=== PATIENT | female | born 1990 | race Caucasian/White ===

== ENCOUNTER 2017-08-13 03:28 | Emergency (ER) | payer OTHER ==
[2017-08-13] MEDS ORDERED: NORMAL SALINE 1000 ML 1,000 ML IV PRN (04:23)
[2017-08-13] MEDS ORDERED: METOCLOPRAMIDE HCL INJ/PF 10 MG/2 ML SDV IV ONE (04:23)
--- NOTE | 2017-08-13 04:28 | ER Document Report ---
ED GI/ - General Chief Complaint: Abdominal Pain Stated Complaint: ABDOMINAL PAIN Time Seen by Provider: 08/13/17 04:03 Mode of Arrival: Ambulatory Information source: Patient TRAVEL OUTSIDE OF THE [place] IN LAST 30 DAYS: No - HPI Patient complains to provider of: Other - Abdominal cramping with nausea and diarrhea Notes: 08/13/17 04:26 Patient is a 26-year-old female who presents with complaint of low abdominal cramping, nausea and diarrhea that started on Saturday. Patient reports that she is having diarrhea at least one time one hour. Patient denies any fever or vomiting but reports that she has taken 12 mg of Zofran at 8 PM with no relief of her nausea. Patient denies any urinary frequency or dysuria. Past medical history of POTS and bilateral bunionectomy. Patient does not take any medications. - Related Data Allergies/Adverse Reactions: phenytoin [From Dilantin] Allergy (Verified 08/13/17 03:57) zolmitriptan [From Zomig] Allergy (Verified 08/13/17 03:57) Past Medical History - General Information source: Patient - Social History Smoking Status: Never Smoker Chew tobacco use (# tins/day): No Frequency of alcohol use: None Drug Abuse: None Lives with: Family Family History: Reviewed & Not Pertinent Patient has suicidal ideation: No Patient has homicidal ideation: No - Medical History Medical History: Other - POTS - Past Medical History Cardiac Medical History: Reports: None Pulmonary Medical History: Reports: None EENT Medical History: Reports: None Neurological Medical History: Reports: None Endocrine Medical History: Reports: None Renal/ Medical History: Reports: None. Denies: Hx Peritoneal Dialysis Malignancy Medical History: Reports: None GI Medical History: Reports: None Musculoskeltal Medical History: Reports None Skin Medical History: Reports None Psychiatric Medical History: Reports: None Traumatic Medical History: Reports: None Infectious Medical History: Reports: None Past Surgical History: Reports: Hx Orthopedic Surgery - bilat bunion - Immunizations Immunizations up to date: Yes Review of Systems - Review of Systems Constitutional: See HPI Physical Exam - Vital signs Vitals: Temp Pulse Resp BP Pulse Ox 97.6 F 99 20 134/89 H 99 08/13/17 03:29 08/13/17 03:29 08/13/17 03:29 08/13/17 03:29 08/13/17 03:29 Interpretation: Normal - General General appearance: Appears well, Alert - HEENT Head: Normocephalic, Atraumatic Eyes: Normal Pupils: PERRL - Respiratory Respiratory status: No respiratory distress Chest status: Nontender Breath sounds: Normal Chest palpation: Normal - Cardiovascular Rhythm: Regular Heart sounds: Normal auscultation Murmur: No - Abdominal Inspection: Normal Distension: No distension Bowel sounds: Hyperactive Tenderness: Tender - Mild generalized tenderness on palpation Organomegaly: No organomegaly - Back Back: Normal, Nontender - Extremities General upper extremity: Normal inspection, Nontender, Normal color, Normal ROM , Normal temperature General lower extremity: Normal inspection, Nontender, Normal color, Normal ROM , Normal temperature, Normal weight bearing. No: Solitario's sign - Neurological Neuro grossly intact: Yes Cognition: Normal Orientation: AAOx4 [place] Coma Scale Eye Opening: Spontaneous [place] Coma Scale Verbal: Oriented [place] Coma Scale Motor: Obeys Commands Alla Coma Scale Total: 15 Speech: Normal Motor strength normal: LUE, RUE, LLE, RLE Sensory: Normal - Psychological Associated symptoms: Normal affect, Normal mood - Skin Skin Temperature: Warm Skin Moisture: Dry Skin Color: Normal Course - Re-evaluation Re-evalutation: Patient reports that she is ready to go home. Blood urine and stool have been sent to lab but have not all resulted. Patient has 2 small children with her and is requesting discharge at this time. Patient reevaluated at this time, nausea has resolved, patient has had 2 episodes of diarrhea since she checked into the department. Patient continues to deny any specific abdominal pain only reports generalized abdominal cramping associated with the diarrhea. Chemistry and urinalysis show no abnormalities. Stool culture is pending. Patient's vital signs remained stable and she will be discharged at this time. Patient agrees to return to the department if she develops worsening diarrhea, vomiting, abdominal pain or if she cannot keep hydrated. - Vital Signs Vital signs: Temp Pulse Resp BP Pulse Ox 98.5 F 83 16 112/63 99 08/13/17 05:40 08/13/17 05:40 08/13/17 05:40 08/13/17 05:40 08/13/17 05:40 - Laboratory Result Diagrams: 08/13/17 04:45 08/13/17 04:45 Laboratory results interpreted by me: 08/13/17 05:00 Urine Ascorbic Acid 40 H Discharge - Discharge Clinical Impression: Diarrhea Qualifiers: Diarrhea type: unspecified type Qualified Code(s): R19.7 - Diarrhea, unspecified Condition: Stable Disposition: HOME, SELF-CARE Instructions: Abdominal Pain ([facility]), Antispasmodics ([facility]) Additional Instructions: You were seen in the emergency department today with complaints of nausea and diarrhea. Your blood and urine are normal. The stool sample will be cultured and we will call you if there is any abnormal findings. You may take over-the- counter Imodium as needed for the diarrhea. Take medications as prescribed. Push fluids as tolerated. Please follow-up with your primary care provider in 1 -2 days. Return to the emergency department if you have worsening abdominal pain, persistent vomiting or diarrhea, or any other concerning symptoms. Prescriptions: Dicyclomine HCl [Bentyl 20 mg Tablet] 20 mg PO QID #20 tablet
[2017-08-13 04:56] LABS: ABSOLUTE EOSINOPHILS # (AUTO) 0.1 10^3/uL (0.0-0.6); ABSOLUTE LYMPHOCYTES (AUTO) 1.2 10^3/uL (0.5-4.7); ABSOLUTE MONOCYTES (AUTO) 0.5 10^3/uL (0.1-1.4); ABSOLUTE NEUT (AUTO) 2.4 10^3/uL (1.7-8.2); BASOPHILS % (AUTO) 0.4 % (0-2); EOSINOPHILS % (AUTO) 1.4 % (0-6); HEMATOCRIT 43.9 % (36.0-47.0); LYMPHOCYTES % (AUTO) 29.3 % (13-45); MEAN CORPUSCULAR HEMOGLOBIN 31.2 pg (27.0-33.4); MEAN CORPUSCULAR HGB CONC 34.2 g/dL (32.0-36.0); MEAN CORPUSCULAR VOLUME 91 fl (80-97); MONOCYTES % (AUTO) 11.5 % (3-13); PLATELET COUNT 158 10^3/uL (150-450); RED BLOOD COUNT 4.81 10^6/uL (3.72-5.28); RED CELL DISTRIBUTION WIDTH 12.9 % (11.5-14.0); SEGMENTED NEUTROPHILS % (AUTO) 57.4 % (42-78); TOTAL CELLS COUNTED % (AUTO) 100 %; WHITE BLOOD COUNT 4.2 10^3/uL (4.0-10.5)
[2017-08-13 05:14] LABS: ALANINE AMINOTRANSFERASE 29 U/L (9-52); ALBUMIN 4.2 g/dL (3.5-5.0); ALKALINE PHOSPHATASE 63 U/L (38-126); ANION GAP 10 (5-19); ASPARTATE AMINO TRANSFERASE 25 U/L (14-36); BILIRUBIN,DIRECT 0.1 mg/dL (0.0-0.4); BILIRUBIN,TOTAL 0.3 mg/dL (0.2-1.3); BLOOD UREA NITROGEN 15 mg/dL (7-20); CALCIUM 9.5 mg/dL (8.4-10.2); CARBON DIOXIDE 27 mmol/L (22-30); CHLORIDE 104 mmol/L (98-107); GLUCOSE 96 mg/dL (75-110); POTASSIUM 4.2 mmol/L (3.6-5.0); SODIUM 141.2 mmol/L (137-145); TOTAL PROTEIN 6.7 g/dL (6.3-8.2)
[2017-08-13 05:15] LABS: APPEARANCE,URINE CLEAR; BILIRUBIN,URINE NEGATIVE (NEGATIVE); COLOR,URINE YELLOW; GLUCOSE, URINE NEGATIVE (NEGATIVE); KETONES,URINE NEGATIVE (NEGATIVE); LEUKOCYTE ESTERASE,URINE NEGATIVE (NEGATIVE); NITRITE,URINE NEGATIVE (NEGATIVE); PROTEIN,URINE NEGATIVE (NEGATIVE); URINE SPECIFIC GRAVITY 1.008; UROBILINOGEN,URINE NEGATIVE mg/dL (<2.0)
[2017-08-13 05:43] VITALS: BP 112/63
== END 2017-08-13 05:43 | disposition home or self-care (01) ==
LOC: ER 03:28
DX: R19.7 Diarrhea, unspecified (principal); R10.9 Unspecified abdominal pain; R11.0 Nausea
CPT/HCPCS: 99284; 96361; 96374; 36415; 87045; 87205; 85025; 81025; 80053; 81001; 87493; J2765; J7030

== ENCOUNTER 2019-01-25 18:32 | Emergency (ER) | payer OTHER ==
[2019-01-25] MEDS ORDERED: OXYCODONE-ACETAMINOPHEN 5-325 MG TABLET PO ONE (20:43)
[2019-01-25] MEDS ORDERED: ONDANSETRON 4 MG TAB.RAPDIS PO ONE (20:43)
[2019-01-25] MEDS ORDERED: LIDOCAINE 1% INJ-PF (10 MG/ML) 30 ML SDV INJ ONE (20:59)
--- NOTE | 2019-01-25 21:01 | ER Document Report ---
ED Hand/Wrist Injury - General Mode of Arrival: Ambulatory Information source: Patient TRAVEL OUTSIDE OF THE [place] IN LAST 30 DAYS: No - HPI Injury to: Middle finger Onset: Just prior to arrival Where: Home, Indoors Timing: Still present Quality of pain: Sharp, Throbbing Severity: Moderate Pain Level: 4 - General Chief Complaint: Laceration Stated Complaint: HAND LACERATION Time Seen by Provider: 01/25/19 20:18 Notes: 28 yo female present to ed for laceration to right hand with a pyrex dish fell breaking and cutting the middle right finger with a large flap covering the harper side of the finger crossing two joints. patient was not able to full flex the finger due to pain. (JACQUELINE FOSTER) - Related Data Allergies/Adverse Reactions: phenytoin [From Dilantin] Allergy (Verified 08/13/17 03:57) zolmitriptan [From Zomig] Allergy (Verified 08/13/17 03:57) Past Medical History - General Information source: Patient - Social History Smoking Status: Never Smoker Frequency of alcohol use: None Drug Abuse: None Lives with: Family Family History: Reviewed & Not Pertinent Patient has suicidal ideation: No Patient has homicidal ideation: No - Past Medical History Cardiac Medical History: Reports: None Pulmonary Medical History: Reports: None EENT Medical History: Reports: None Neurological Medical History: Reports: None Endocrine Medical History: Reports: None Renal/ Medical History: Reports: None Malignancy Medical History: Reports: None GI Medical History: Reports: None Musculoskeletal Medical History: Reports None Skin Medical History: Reports None Psychiatric Medical History: Reports: None Traumatic Medical History: Reports: None Infectious Medical History: Reports: None Past Surgical History: Reports: Hx Orthopedic Surgery - bilat bunion - Immunizations Immunizations up to date: Yes Hx Diphtheria, Pertussis, Tetanus Vaccination: Yes Review of Systems - Review of Systems Constitutional: No symptoms reported EENT: No symptoms reported Cardiovascular: No symptoms reported Respiratory: No symptoms reported Gastrointestinal: No symptoms reported Genitourinary: No symptoms reported Female Genitourinary: No symptoms reported Musculoskeletal: No symptoms reported Skin: Other - laceration right middle finger Hematologic/Lymphatic: No symptoms reported Neurological/Psychological: No symptoms reported -: Yes All other systems reviewed and negative Physical Exam - Vital signs Interpretation: Normal - General General appearance: Appears well, Alert - HEENT Head: Normocephalic, Atraumatic Eyes: Normal Pupils: PERRL - Respiratory Respiratory status: No respiratory distress Chest status: Nontender Breath sounds: Normal Chest palpation: Normal - Cardiovascular Rhythm: Regular Heart sounds: Normal auscultation Murmur: No - Abdominal Inspection: Normal Distension: No distension Bowel sounds: Normal Tenderness: Nontender Organomegaly: No organomegaly - Back Back: Normal, Nontender - Extremities General upper extremity: Normal color, Normal temperature General lower extremity: Normal inspection, Nontender, Normal color, Normal ROM, Normal temperature, Normal weight bearing. No: Solitario's sign Hand: Tender, Laceration - right middle finger flap 8cm, No evidence of human bite, No evidence of FB, Swelling. No: Abrasion, Deformity, Dislocation, Ecchymosis, Instability, Nail injury - Neurological Neuro grossly intact: Yes Cognition: Normal Orientation: AAOx4 [place] Coma Scale Eye Opening: Spontaneous [place] Coma Scale Verbal: Oriented [place] Coma Scale Motor: Obeys Commands Alla Coma Scale Total: 15 Speech: Normal Motor strength normal: LUE, RUE, LLE, RLE Sensory: Normal - Psychological Associated symptoms: Normal affect, Normal mood - Skin Skin Temperature: Warm Skin Moisture: Dry Skin Color: Normal - Vital signs Vitals: Temp Pulse Resp BP Pulse Ox 98.4 F 93 15 116/67 99 01/25/19 18:46 01/25/19 18:46 01/25/19 18:46 01/25/19 18:46 01/25/19 18:46 Course - Diagnostic Test Radiology reviewed: Image reviewed, Reports reviewed - Re-evaluation Re-evalutation: 01/26/19 02:[address] Leonid Ferrara due to the size and location of the laceration. he recommended. suturing the wound well approximated and having patient follow up with hand surgeon. He also recommended use of Augmentin. Patient was treated with narcotic for pain at the sight and anti-nausea medication as she states all narcotics medications make her nauseated. (JACQUELINE FOSTER) I personally saw and evaluated this patient and agree with the above documentation by the [facility]. Patient is a 28-year-old female, that had a laceration to her finger from glass. I thoroughly examined the patient's finger, after it was anesthetized, irrigated, and tourniquet placed, and I was not able to see any tendon injury, however patient was having hard time flexing her finger, it is unclear if this was due to pain, or due to the deeper underlying tendon injury that this could not be visualized. I recommend that she follow-up with a hand surgeon, start on antibiotics and have the finger splinted until seen. Patient was agreeable and discharged. (AYDEE FERRARA) - Vital Signs Vital signs: Temp Pulse Resp BP Pulse Ox 98.0 F 77 18 116/80 97 01/25/19 23:00 01/25/19 23:00 01/25/19 23:00 01/25/19 23:00 01/25/19 23:00 Procedures - Laceration/Wound Repair Right Finger 3rd digit Time completed: 22:50 Wound length (cm): 8 Wound's Depth, Shape: Into muscle, Flap Laceration pre-procedure: Sterile PPE donned Anesthetic type: 1% Lidocaine - Digital block Volume Anesthetic (mLs): 7 Wound explored: No foreign body removed, Contaminated Irrigated w/ Saline (mLs): 500 Wound Repaired With: Sutures Suture Size/Type: 3:0, Ethilon Number of Sutures: 10 Layer Closure?: No Post-procedure wound care: Sterile dressing applied, Splint applied Post-procedure NV exam normal: Yes Complications: No Discharge - Discharge Clinical Impression: Laceration of right middle finger w/o foreign body w/o damage to nail Qualifiers: Encounter type: initial encounter Qualified Code(s): S61.212A - Laceration without foreign body of right middle finger without damage to nail, initial encounter Condition: Stable Disposition: HOME, SELF-CARE Additional Instructions: Hand Laceration A laceration on the hand can present special problems. It may be difficult to keep the wound dry. Motion of the fingers can disturb the healing edges. Your work may involve exposure to damaging chemicals or water. Keep the wound clean and dry. If you can't keep the cut dry, undisturbed, and free of chemical exposure, please discuss this with the doctor. If any water or chemical gets onto the dressing, remove it, blot the wound dry, then apply a fresh bandage. Dressings should be changed every day. If you feel the stitches pulling as you move the hand, a splint or other form of protection is needed. If any signs of infection occur (swelling, redness, increasing tenderness, red streaks, tender lumps in the armpit, or fever), see the doctor immediately. SOAP CLEANSING: Gently wash the wound daily using a mild soap (like Ivory, Phisoderm, Neutrogena). Use warm water, rubbing gently until all debris, ooze, and crusting have been washed from the wound. Allow to dry briefly (about 10 minutes) after cleaning. Repeat this cleansing at least three times a day for the first two days and then once or twice a day. ANTIBIOTIC OINTMENT PROTECTION: Your wounds are such that dressing them is not practical or optional. After cleansing, you should apply a thin coating of antibiotic ointment (Bacitracin, not Neosporin) to the wounds at least three times daily. This lessens infection risk, and may decrease the amount of scarring. Use a q-tip or dull butter knife, not your finger, to apply this ointment. Any debris or ooze which builds up in the ointment should be gently rubbed off with a sterile gauze pad. Harder crusting may need to be gently scrubbed of f with a clean wash cloth with soap and warm water, perhaps applying a warm, wet wash cloth to the wound for ten minutes first. Development of redness, severe itching, or blistering may mean allergy to the ointment. See the doctor. Augmentin Augmentin is a mixture of amoxicillin and clavulanate. Amoxicillin is a member of the penicillin family. It covers the germs likely to cause ear, bronchial, and urinary infections better than plain penicillin. The addition of clavulanate allows it to cover staph infections of the skin, as well as resistant cases of ear and sinus infections. Your physician has chosen Augmentin for you because of the special nature of your situation. Augmentin is best taken with meals. Nausea after taking the medication is rare, but can occur. Diarrhea can occur, particularly in small children. Vaginal yeast infections, and oral thrush in infants are also common. Contact your physician if these problems occur. Allergy to penicillins is common. If you have had an allergic reaction to any drug of the penicillin family, you should never take any other penicillin. Notify your doctor at once if you develop hives, shortness of breath, swelling, or faintness. ORAL NARCOTIC MEDICATION: You have been given a [place] dispense pack for pain control. This medication is a narcotic. It's best taken with food, as nausea can result if taken on an empty stomach. Don't operate machinery or drive within six hours of taking this medication. Do not combine this medicine with alcohol, or with any medication which can cause sedation (such as cold tablets or sleeping pills) unless you get permission from the physician. Narcotics tend to cause constipation. If possible, drink plenty of fluids and eat a diet high in fiber and fruits. Antinausea Medication You have been given a medication to suppress nausea and vomiting. This type of medication can be given as a shot, pill, or suppository. It will usually last for many hours. Pills and shots usually last six to eight hours, suppositories last about 12 hours. For the typical illness, only one or two doses of the med ication may be necessary. Mild lightheadedness may occur. This type of medicine can cause drowsiness. Do not drive or operate dangerous machinery while under its influence. Do not mix with alcohol. See your doctor at once if you have muscle spasms or tightness, or uncontrollable motions (particularly of the neck, mouth, or jaw). Persistent vomiting or severe lightheadedness should also be evaluated by the physician. FOLLOW-UP CARE: Please return in ___2__ days for an infection check and dressing change. Your sutures should be removed in __10___ days. To facilitate a timely removal of your sutures, you may return to the Emergency Department at [facility]. You do not need to call for an appointment, but the best time to come in for suture removal is early in the morning. If you have been referred to another physician for follow-up care, call that physicians office for an appointment as you were instructed. If you experience a significant change in your laceration, or if you are concerned there may be an infection (swelling, redness, drainage, increasing tenderness, red streaks, tender lumps in the armpit or groin above the laceration, or fever), return to the Emergency Department immediately re-evaluation. You need to call your primary care doctor in the morning to schedule a referral with the hand specialist as soon as possible. Prescriptions: Amox Tr/Potassium Clavulanate [Augmentin 875-125 Tablet] 1 tab PO BID 10 Days tablet
--- NOTE | 2019-01-25 21:14 | RADIOLOGY REPORT (SQ) ---
XR FINGERS CLINICAL STATEMENT: deep laceration right middle finger glass COMPARISON: None FINDINGS: Bony alignment is anatomic. There is no fracture or dislocation. The soft tissues are unremarkable. No radiopaque foreign body. There appears to be some artifact on the imaging plate. IMPRESSION: No fracture. No radiopaque foreign body.
[2019-01-25] MEDS ORDERED: AMOXICILLIN TR/POT CLAVULANATE 500-125 MG TAB PO ONE (22:45)
[2019-01-25] MEDS ORDERED: HYDROCODONE/ACETAMINOPHEN 5-325 MG (6 TAB/ER DISP) PO PRN (22:47)
[2019-01-25] MEDS ORDERED: ONDANSETRON ODT 4 MG TAB (6 TAB/ER DISP) PO PRN (22:47)
[2019-01-25 23:20] VITALS: BP 116/80
== END 2019-01-25 23:20 | disposition home or self-care (01) ==
LOC: ER 18:32
PROC: 0HQFXZZ Repair Right Hand Skin, External Approach (ICD-10-PCS; principal; 2019-01-25)
DX: S61.212A Laceration without foreign body of right middle finger without damage to nail, initial encounter (principal); M79.644 Pain in right finger(s); W25.XXXA Contact with sharp glass, initial encounter
CPT/HCPCS: 73140; 12004; S0119; 99283

== ENCOUNTER 2020-04-06 21:15 | Emergency (ER) | payer OTHER ==
[2020-04-06] MEDS ORDERED: NORMAL SALINE 1000 ML 1,000 ML IV ONE ×2 (22:11→22:51)
[2020-04-06] MEDS ORDERED: LORAZEPAM INJ 2 MG/1 ML VIAL IV ONE (22:11)
[2020-04-06 22:12] LABS: ABSOLUTE EOSINOPHILS # (AUTO) 0.1 10^3/uL (0.0-0.6); ABSOLUTE LYMPHOCYTES (AUTO) 1.3 10^3/uL (0.5-4.7); ABSOLUTE MONOCYTES (AUTO) 0.8 10^3/uL (0.1-1.4); ABSOLUTE NEUT (AUTO) 8.8 10^3/uL (1.7-8.2); BASOPHILS % (AUTO) 0.2 % (0-2); EOSINOPHILS % (AUTO) 0.6 % (0-6); HEMATOCRIT 41.4 % (36.0-47.0); HEMOGLOBIN 14.1 g/dL (12.0-15.5); LYMPHOCYTES % (AUTO) 11.7 % (13-45); MEAN CORPUSCULAR HEMOGLOBIN 31.2 pg (27.0-33.4); MEAN CORPUSCULAR HGB CONC 33.9 g/dL (32.0-36.0); MEAN CORPUSCULAR VOLUME 92 fl (80-97); MONOCYTES % (AUTO) 7.3 % (3-13); PLATELET COUNT 167 10^3/uL (150-450); RED CELL DISTRIBUTION WIDTH 12.4 % (11.5-14.0); SEGMENTED NEUTROPHILS % (AUTO) 80.2 % (42-78); TOTAL CELLS COUNTED % (AUTO) 100 %
--- NOTE | 2020-04-06 22:13 | ER Document Report ---
ED General - General Chief Complaint: Vomiting Stated Complaint: ABDOMINAL PAIN/VOMITING Time Seen by Provider: 04/06/20 22:01 Primary Care Provider: MAREN WADDELL PA-C [Primary Care Provider] - Follow up as needed Notes: Patient is a 29-year-old female who comes emergency department for chief complaint of multiple episodes of vomiting and an episode of syncope. Patient states that when she vomits she typically "triggers my POTS" which causes her to have syncopal episodes, this is common for her in the past. She states that she felt a little bit congested, she went to get COVID-19 tested but they were out of test, she states that after she got home she felt nauseated and she vomited multiple times. She denies fever/chills, sore throat, shortness of breath, or any symptoms other than the congestion and the vomiting. She denies headache, abdominal pain, flank pain, dysuria, or any obvious sick contacts. She denies . She takes no daily medications. She denies recreational drugs. She denies injury with the passing out episode. She comes by EMS. Patient states she took 8 mg of Zofran at home before coming to the emergency department. TRAVEL OUTSIDE OF THE [place] IN LAST 30 DAYS: No - Related Data Allergies/Adverse Reactions: phenytoin [From Dilantin] Allergy (Verified 08/13/17 03:57) zolmitriptan [From Zomig] Allergy (Verified 08/13/17 03:57) Past Medical History - General Information source: Patient - Social History Smoking Status: Never Smoker Drug Abuse: None Lives with: Family Family History: Reviewed & Not Pertinent - Past Medical History Cardiac Medical History: Reports: Other - POTS Renal/ Medical History: Denies: Hx Peritoneal Dialysis Past Surgical History: Reports: Hx Orthopedic Surgery - bilat bunion - Immunizations Immunizations up to date: Yes Hx Diphtheria, Pertussis, Tetanus Vaccination: Yes Review of Systems - Review of Systems Constitutional: See HPI EENT: See HPI Cardiovascular: No symptoms reported Respiratory: No symptoms reported Gastrointestinal: See HPI Genitourinary: No symptoms reported Female Genitourinary: No symptoms reported Musculoskeletal: No symptoms reported Skin: No symptoms reported Hematologic/Lymphatic: No symptoms reported Neurological/Psychological: No symptoms reported Physical Exam - Vital signs Vitals: Resp Pulse Ox 17 100 04/06/20 21:23 04/06/20 21:23 - Notes Notes: GENERAL: Alert. Anxious appearing but does not appear to be in distress HEAD: Normocephalic, atraumatic. EYES: Pupils equal, round, and reactive to light. Extraocular movements intact. ENT: Oral mucosa very dry, tongue midline. Oropharynx unremarkable. Airway patent. NECK: Full range of motion. Supple. Trachea midline. No lymphadenopathy. LUNGS: Clear to auscultation bilaterally, no wheezes, rales, or rhonchi. No respiratory distress. Non-tender chest wall. HEART: Tachycardic, normal rhythm, no murmur ABDOMEN: Soft, non-tender. Non-distended. EXTREMITIES: Moves all 4 extremities spontaneously. No edema, normal radial and dorsalis pedis pulses bilaterally. No cyanosis. BACK: no cervical, thoracic, lumbar midline tenderness. No saddle anesthesia, normal distal neurovascular exam. Moves all extremities in full range of motion. NEUROLOGICAL: Alert and oriented x3. Normal speech. Cranial nerves II through XII grossly intact. Strength 5/5 in all extremities. PSYCH: Speaks rapidly and somewhat anxiously but is cooperative. Unremarkable otherwise. SKIN: Warm, dry, normal turgor. No rashes or lesions noted. Course - Re-evaluation Re-evalutation: On my evaluation at bedside patient is alert, well-appearing, she does have dry mucous membranes and she is mildly tachycardic but she is otherwise well- appearing and her exam is otherwise unremarkable. She has no other complaints at this time. When she sat up her heart rate did increase to the 120s/130s. Patient will be given IV fluids, work-up is pending. Patient declined Ativan. However over 4 hours have passed since her Zofran and she was given this instead for nausea. She was given IV fluids and her tachycardia resolved. She was given Pepcid after this. Her abdomen is soft and benign. She is very well-appearing now. Patient states appreciation and is re questing to go home. CBC shows mild leukocytosis, nonspecific. Chemistry unremarkable. Urine unremarkable. test negative. EKG unremarkable. I did offer COVID-19 testing but patient declined. I do feel this is appropriate based on her nonspecific symptoms and lack of fever, patient states she ate suspicious food earlier and several hours later started vomiting. I did discuss expectations, follow-up, and return precautions. Patient states appreciation and agreement. Stable and well-appearing at time of discharge. - Vital Signs Vital signs: Temp Pulse Resp BP Pulse Ox 98.5 F 95 13 126/83 H 99 04/07/20 02:01 04/07/20 01:20 04/07/20 02:01 04/07/20 02:01 04/07/20 02:01 - Laboratory Result Diagrams: 04/06/20 21:35 04/06/20 21:35 Laboratory results interpreted by me: 04/06/20 04/06/20 04/06/20 21:35 21:35 22:56 WBC 11.0 H Lymph % (Auto) 11.7 L Absolute Neuts (auto) 8.8 H Seg Neutrophils % 80.2 H Glucose 152 H Urine Blood MODERATE H - EKG Interpretation by Me Additional EKG results interpreted by me: EKG shows sinus tachycardia at a rate of 116, normal axis, no T wave inversions or ST segment changes in consecutive leads, QTC 451, CO interval 136 Discharge - Discharge Clinical Impression: Dehydration Vomiting Qualifiers: Vomiting type: unspecified Vomiting Intractability: non-intractable Nausea presence: with nausea Qualified Code(s): R11.2 - Nausea with vomiting, unspecified Episode of syncope Qualifiers: Syncope type: unspecified Qualified Code(s): R55 - Syncope and collapse Condition: Stable Disposition: HOME, SELF-CARE Additional Instructions: You have been evaluated for nausea, vomiting, dehydration, passing out. Your work-up does not show a specific abnormality, it is most likely either ingested a toxin or is possibly a viral illness. Either way this should resolve with time. Take Zofran for nausea (he can take this every 4-6 hours if needed). I also recommend famotidine, bland food, plenty of hydration. Follow-up with primary care for additional management. Return if you worsen including uncontrolled vomiting, spiking fevers, severe abdominal pain, passing out, chest pain, or any other concerning symptoms. Referrals: MAREN WADDELL PA-C [Primary Care Provider] - Follow up as needed
[2020-04-06 22:26] LABS: ALBUMIN 4.5 g/dL (3.5-5.0); ALKALINE PHOSPHATASE 63 U/L (38-126); ANION GAP 9 (5-19); ASPARTATE AMINO TRANSFERASE 24 U/L (14-36); BILIRUBIN,DIRECT 0.1 mg/dL (0.0-0.4); BILIRUBIN,TOTAL 0.3 mg/dL (0.2-1.3); BLOOD UREA NITROGEN 15 mg/dL (7-20); CALCIUM 9.8 mg/dL (8.4-10.2); CARBON DIOXIDE 27 mmol/L (22-30); CHLORIDE 103 mmol/L (98-107); GLUCOSE 152 mg/dL (75-110); TOTAL PROTEIN 7.5 g/dL (6.3-8.2)
--- NOTE | 2020-04-06 23:02 | EKG REPORT ---
SEVERITY:- BORDERLINE ECG - SINUS TACHYCARDIA PROBABLE LEFT ATRIAL ABNORMALITY : Confirmed by: Ulysses Cervantes MD 06-Apr-2020 23:01:13
--- NOTE | 2020-04-06 23:13 | RADIOLOGY REPORT (SQ) ---
EXAM DESCRIPTION: XR CHEST 1 VIEW COMPLETED DATE/TME: 04/06/2020 22:35 CLINICAL HISTORY: syncope, tachycardia COMPARISON: None. FINDINGS: Single frontal radiograph view of the chest. Cardiomediastinal silhouette: Normal size and contour. Lungs: No consolidation, pneumothorax, or pleural effusion. Bones: No acute osseous abnormality. Leads overlie the chest. Upper abdomen: No abnormality identified. IMPRESSION: 1. No acute pulmonary process identified.
[2020-04-06] MEDS ORDERED: ONDANSETRON HCL INJ/PF 4 MG/2 ML SDV IV ONE (23:55)
[2020-04-06] MEDS ORDERED: FAMOTIDINE 20 MG TABLET PO ONE (23:56)
[2020-04-07 00:13] LABS: APPEARANCE,URINE CLEAR; BILIRUBIN,URINE NEGATIVE (NEGATIVE); COLOR,URINE STRAW; GLUCOSE, URINE NEGATIVE (NEGATIVE); KETONES,URINE NEGATIVE (NEGATIVE); LEUKOCYTE ESTERASE,URINE NEGATIVE (NEGATIVE); NITRITE,URINE NEGATIVE (NEGATIVE); PROTEIN,URINE NEGATIVE (NEGATIVE); UROBILINOGEN,URINE NEGATIVE mg/dL (<2.0)
[2020-04-07 02:23] VITALS: BP 126/83
== END 2020-04-07 02:24 | disposition home or self-care (01) ==
LOC: ER 21:15
DX: E86.0 Dehydration (principal); R11.2 Nausea with vomiting, unspecified; R55 Syncope and collapse; R09.81 Nasal congestion; I49.8 Other specified cardiac arrhythmias
CPT/HCPCS: 93005; 99285; 36415; 83690; 84703; 85025; 80053; 81001; 71045; 93010; J2405; J7030 ×2

== ENCOUNTER 2020-04-07 17:49 | Emergency (ER) | payer OTHER ==
--- NOTE | 2020-04-07 18:17 | ER Document Report ---
ED Medical Screen (RME) - General Chief Complaint: Nausea/Vomiting/Diarrhea Stated Complaint: POSSIBLE FOOD POISONING/VOMITTING Time Seen by Provider: 04/07/20 18:02 Primary Care Provider: MAREN WADDELL PA-C [Primary Care Provider] - Follow up as needed Information source: Patient Notes: Patient is a 29-year-old female returns to the emergency room after being seen yesterday evening for same presentation. 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 She states that oftentimes when this incident she has syncopal episodes but she has not had a syncopal episode today. Patient was seen yesterday in the late evening was discharged out here around 3 AM this morning she felt wonderful. She got through most all day today at around 3 PM tonight when it started to hit her again. Patient has vomited about five times and has had one bout of diarrhea on top of this. She has been tachycardic according to her. She denies any loss of consciousness this time she denies any syncopal episode this time. Patient examination: Patient is a well-nourished well-developed 29-year-old female though in no apparent distress is very stoic in her presentation. Patient is in a wheelchair not wanting to move her arms or legs to help get up to go to the [facility]. 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 Cardiac: Patient is tachycardic at 119 beats a minute on monitor no murmurs auscultated. Lungs: Bilateral breath sounds breath sounds increased clear to auscultation. Abdomen: Bowel sounds are present all four quads she is nontender to palpate throughout all quadrants at this time. At this time we will just repeat some labs and start some IV fluids I will give her some Phenergan states she is informed me that she has had 60 mg of Zofran without relief. TRAVEL OUTSIDE OF THE [place] IN LAST 30 DAYS: No - Related Data Allergies/Adverse Reactions: phenytoin [From Dilantin] Allergy (Verified 08/13/17 03:57) zolmitriptan [From Zomig] Allergy (Verified 08/13/17 03:57) Past Medical History Renal/ Medical History: Denies: Hx Peritoneal Dialysis Past Surgical History: Reports: Hx Orthopedic Surgery - bilat bunion - Immunizations Immunizations up to date: Yes Hx Diphtheria, Pertussis, Tetanus Vaccination: Yes Physical Exam - Vital signs Vitals: Temp Pulse Resp BP Pulse Ox 98.2 F 119 H 16 132/82 H 99 04/07/20 17:55 04/07/20 17:55 04/07/20 17:55 04/07/20 17:55 04/07/20 17:55 Course - Vital Signs Vital signs: Temp Pulse Resp BP Pulse Ox 98.2 F 119 H 16 132/82 H 99 04/07/20 17:55 04/07/20 17:55 04/07/20 17:55 04/07/20 17:55 04/07/20 17:55 Doctor's Discharge - Discharge Referrals: MAREN WADDELL PA-C [Primary Care Provider] - Follow up as needed
[2020-04-07] MEDS ORDERED: RINGERS SOLUTION,LACTATED 1,000 ML IV ONE (18:18)
[2020-04-07] MEDS ORDERED: PROMETHAZINE HCL INJ 25 MG/1 ML VIAL IV ONE (18:18)
[2020-04-07 19:01] LABS: ABSOLUTE EOSINOPHILS # (AUTO) 0.1 10^3/uL (0.0-0.6); ABSOLUTE LYMPHOCYTES (AUTO) 1.7 10^3/uL (0.5-4.7); ABSOLUTE MONOCYTES (AUTO) 0.7 10^3/uL (0.1-1.4); ABSOLUTE NEUT (AUTO) 5.1 10^3/uL (1.7-8.2); BASOPHILS % (AUTO) 0.2 % (0-2); EOSINOPHILS % (AUTO) 1.1 % (0-6); HEMOGLOBIN 13.6 g/dL (12.0-15.5); LYMPHOCYTES % (AUTO) 22.8 % (13-45); MEAN CORPUSCULAR HEMOGLOBIN 31.8 pg (27.0-33.4); MEAN CORPUSCULAR VOLUME 94 fl (80-97); MONOCYTES % (AUTO) 9.2 % (3-13); PLATELET COUNT 158 10^3/uL (150-450); RED BLOOD COUNT 4.27 10^6/uL (3.72-5.28); RED CELL DISTRIBUTION WIDTH 12.4 % (11.5-14.0); SEGMENTED NEUTROPHILS % (AUTO) 66.7 % (42-78); TOTAL CELLS COUNTED % (AUTO) 100 %; WHITE BLOOD COUNT 7.6 10^3/uL (4.0-10.5)
[2020-04-07 19:16] LABS: ALBUMIN 4.3 g/dL (3.5-5.0); ALKALINE PHOSPHATASE 49 U/L (38-126); ANION GAP 7 (5-19); ASPARTATE AMINO TRANSFERASE 24 U/L (14-36); BILIRUBIN,TOTAL 0.3 mg/dL (0.2-1.3); BLOOD UREA NITROGEN 11 mg/dL (7-20); CALCIUM 9.6 mg/dL (8.4-10.2); CARBON DIOXIDE 27 mmol/L (22-30); CHLORIDE 107 mmol/L (98-107); GLUCOSE 113 mg/dL (75-110); POTASSIUM 4.2 mmol/L (3.6-5.0); TOTAL PROTEIN 7.3 g/dL (6.3-8.2)
[2020-04-07 19:28] LABS: APPEARANCE,URINE CLEAR; BILIRUBIN,URINE NEGATIVE (NEGATIVE); COLOR,URINE STRAW; GLUCOSE, URINE NEGATIVE (NEGATIVE); KETONES,URINE NEGATIVE (NEGATIVE); LEUKOCYTE ESTERASE,URINE NEGATIVE (NEGATIVE); NITRITE,URINE NEGATIVE (NEGATIVE); PROTEIN,URINE NEGATIVE (NEGATIVE); URINE SPECIFIC GRAVITY 1.006; UROBILINOGEN,URINE NEGATIVE mg/dL (<2.0)
--- NOTE | 2020-04-07 19:41 | ER Document Report ---
ED General - General Chief Complaint: Nausea/Vomiting/Diarrhea Stated Complaint: POSSIBLE FOOD POISONING/VOMITTING Time Seen by Provider: 04/07/20 18:02 Primary Care Provider: MAREN WADDELL PA-C [Primary Care Provider] - Follow up as needed Notes: Patient presents to the ER for evaluation of generalized abdominal cramping with nausea, vomiting, diarrhea that began at approximately 6:00 last night. The patient states she feels as though she has food poisoning. She denies fever. She denies cough or congestion. She denies shortness of breath or chest pain. She denies low back pain or dysuria. She states she is able to tolerate some p.o. intake. Nursing notes reviewed and past medical, social, and family histories reviewed and validated. TRAVEL OUTSIDE OF THE [place] IN LAST 30 DAYS: No - Related Data Allergies/Adverse Reactions: phenytoin [From Dilantin] Allergy (Verified 04/07/20 18:25) zolmitriptan [From Zomig] Allergy (Verified 04/07/20 18:25) Past Medical History - General Information source: Patient - Social History Smoking Status: Never Smoker Frequency of alcohol use: Occasional Drug Abuse: None Lives with: Family Family History: Reviewed & Not Pertinent Patient has suicidal ideation: No Patient has homicidal ideation: No - Past Medical History Cardiac Medical History: Reports: None Pulmonary Medical History: Reports: None EENT Medical History: Reports: None Neurological Medical History: Reports: Hx Seizures Endocrine Medical History: Reports: None Renal/ Medical History: Reports: None. Denies: Hx Peritoneal Dialysis Malignancy Medical History: Reports: None GI Medical History: Reports: None Musculoskeletal Medical History: Reports None Skin Medical History: Reports None Psychiatric Medical History: Reports: None Traumatic Medical History: Reports: None Infectious Medical History: Reports: None Past Surgical History: Reports: Hx Orthopedic Surgery - bilat bunion - Immunizations Immunizations up to date: Yes Hx Diphtheria, Pertussis, Tetanus Vaccination: Yes Review of Systems - Review of Systems Notes: Constitutional: Negative for fever. HENT: Negative for sore throat. Eyes: Negative for visual changes. Cardiovascular: Negative for chest pain. Respiratory: Negative for shortness of breath. Gastrointestinal: Positive for abdominal pain, nausea, vomiting, diarrhea. Genitourinary: Negative for dysuria. Musculoskeletal: Negative for back pain. Skin: Negative for rash. Neurological: Negative for headaches, weakness or numbness. 10 point ROS negative except as marked above and in HPI. Physical Exam - Vital signs Vitals: Temp Pulse Resp BP Pulse Ox 98.2 F 119 H 16 132/82 H 99 04/07/20 17:55 04/07/20 17:55 04/07/20 17:55 04/07/20 17:55 04/07/20 17:55 - Notes Notes: CONSTITUTIONAL: Well appearing. No acute distress. SKIN: Warm, dry, and intact without rash EYES: Extraocular movements are grossly intact, clear conjunctiva HENT: Normocephalic, atraumatic, moist mucus membranes NECK: No obvious swelling, normal range of motion PULMONARY: Normal chest rise and fall. Breath sounds clear and equal bilater ally. No respiratory distress or stridor CARDIOVASCULAR: Regular rate. No murmurs, rubs, gallops. Distal extremities are warm and well perfused. ABDOMINAL: The abdomen is soft. There is tenderness in a generalized distribution noted. No rebound tenderness noted. NEUROLOGIC: Normal speech, moves all extremities. Cranial nerves are within normal limits. MUSCULOSKELETAL: No gross deformities, atraumatic PSYCHIATRIC: Normal mood and affect Course - Re-evaluation Re-evalutation: 04/07/20 20:13 Rechecked patient who has responded well to treatment in the ER. Discussed with patient: results, diagnosis, treatment plan, and need for follow-up. Return to the emergency department warnings were given. All questions and concerns were addressed. The plan is agreed with and understood. Patient is stable and ready for discharge. - Vital Signs Vital signs: Temp Pulse Resp BP Pulse Ox 98.2 F 119 H 16 132/82 H 99 04/07/20 17:55 04/07/20 17:55 04/07/20 17:55 04/07/20 17:55 04/07/20 17:55 - Laboratory Result Diagrams: 04/07/20 18:35 04/07/20 18:35 Laboratory results interpreted by me: 04/07/20 04/07/20 18:35 18:35 Glucose 113 H Urine Blood SMALL H Discharge - Discharge Clinical Impression: Nausea vomiting and diarrhea, Generalized abdominal pain Disposition: HOME, SELF-CARE Instructions: Abdominal Pain ([facility]) Additional Instructions: Push fluids. Medications as prescribed. Return to the emergency room if your symptoms change or worsen. Prescriptions: Ondansetron [Zofran Odt 4 mg Tablet] 1 tab PO Q6HP PRN #12 tab.rapdis PRN Reason: For Nausea/Vomiting Referrals: MAREN WADDELL PA-C [Primary Care Provider] - Follow up as needed
[2020-04-07] MEDS ORDERED: ONDANSETRON HCL INJ/PF 4 MG/2 ML SDV IV ONE (20:12)
[2020-04-07 20:30] VITALS: BP 128/86
== END 2020-04-07 20:28 | disposition home or self-care (01) ==
LOC: ER 17:49
DX: R10.84 Generalized abdominal pain (principal); R10.817 Generalized abdominal tenderness; R11.2 Nausea with vomiting, unspecified; R19.7 Diarrhea, unspecified; Z88.8 Allergy status to other drugs, medicaments and biological substances
CPT/HCPCS: 99284; 96361; 96374; 96375; 36415; 83690; 85025; 81025; 80053; 81001; J2550; J2405; J7120